=== PATIENT | male | born 1940 | race Caucasian/White ===

== ENCOUNTER → 2016-05-01 | Outpatient (CLI) | payer MEDICARE | LOC: KOH-I 10:47 | DX: J20.9 Acute bronchitis, unspecified (principal) | CPT/HCPCS: 71020 ==

== ENCOUNTER → 2020-05-06 | Outpatient (CLI) | payer MEDICARE ==
[~2020-05-06] MED LIST: COUMADIN3 MG PO; COUMADIN4 MG PO; ECOTRIN81 MG PO; LEVAQUIN500 MG PO; LISINOPRIL10 MG PO; LOPRESSOR 25 MG25 MG PO; PREVAGEN PO; PRILOSEC OTC20 MG PO; TRAMADOL HCL50 MG PO; TRAZODONE HCL50 MG PO; TYLENOL W/CODEIN1 E1 PO; ZETIA10 MG PO
== END ==
LOC: KOH-I 15:30
DX: R07.89 Other chest pain (principal); I71.2 Thoracic aortic aneurysm, without rupture; J47.9 Bronchiectasis, uncomplicated
CPT/HCPCS: 71250